=== PATIENT | male | born 1965 | race Caucasian/White ===

== ENCOUNTER 2016-12-06 12:25 | Emergency (ER) | payer BC, OTHER ==
[~2016-12-06] VITALS: Ht 180.3 cm; Wt 104.3 kg
[~2016-12-06 12:25] MED LIST: DESYREL50 MG; PERCOCET 5-3251 EACH PO; VICODIN 5-5001 EACH
[2016-12-06] MEDS ORDERED: SERTRALINE HCL100 MG PO (13:04)
[2016-12-06] MEDS ORDERED: TRAZODONE HCL100 MG PO (13:04)
[2016-12-06] MEDS ORDERED: KEFLEX500 MG PO (14:04)
[2016-12-06 14:25] VITALS: BP 128/85
== END 2016-12-06 17:52 | disposition home or self-care (01) ==
LOC: ER 12:25
DX: S61.412A Laceration without foreign body of left hand, initial encounter (principal); I10 Essential (primary) hypertension; E78.00 Pure hypercholesterolemia, unspecified; W45.8XXA Other foreign body or object entering through skin, initial encounter; Y93.89 Activity, other specified; Y92.89 Other specified places as the place of occurrence of the external cause; Y99.8 Other external cause status